=== PATIENT | male | born 1950 | race Caucasian/White ===

== ENCOUNTER → 2017-01-29 | Outpatient (CLI) | payer MEDICARE, BC ==
[~2017-01-29] MED LIST: REGADENOSON 0.4 MG/5 ML DISP.SYRIN. IV ONE
--- NOTE | 2017-01-29 15:01 | PCVCIMAG ---
EXAM: BILATERAL CAROTID DUPLEX INDICATION: Carotid Occlusive Disease. FINDINGS: Doppler Measurements (centimeters per second): RIGHT: Peak CCA-97, Peak ECA-124, Diastolic ICA-25, Peak ICA-88, ICA/CCA Ratio-0.9. LEFT: Peak CCA-96, Peak ECA-79, Diastolic ICA-41, Peak ICA-98, ICA/CCA Ratio-1.0. RIGHT CAROTID: The carotid bulb has mild plaque. The proximal internal carotid artery shows <40% stenosis. The common carotid artery shows no significant stenosis. The external carotid artery shows no significant stenosis. LEFT CAROTID: The carotid bulb has mild plaque. The proximal internal carotid artery shows <40% stenosis. The common carotid artery shows no significant stenosis. The external carotid artery shows no significant stenosis. Antegrade flow in both vertebral arteries. IMPRESSION: <40% stenosis of the right internal carotid artery with mild plaque. <40% stenosis of the left internal carotid artery with mild plaque. LOC:[place] [id number]
== END | disposition home or self-care (01) ==
LOC: PCVCIMAG 14:12
PROVIDERS: ATTEND Internal Medicine Cardiovascular Disease
DX: I65.23 Occlusion and stenosis of bilateral carotid arteries (principal)
CPT/HCPCS: 93880; J2785

== ENCOUNTER → 2017-08-24 | Outpatient (CLI) | payer MEDICARE, BC | END | disposition home or self-care (01) | LOC: PCVCCLINIC 14:00 | DX: I25.10 Atherosclerotic heart disease of native coronary artery without angina pectoris (principal); I10 Essential (primary) hypertension; I65.29 Occlusion and stenosis of unspecified carotid artery; E78.00 Pure hypercholesterolemia, unspecified; E11.9 Type 2 diabetes mellitus without complications; Z88.8 Allergy status to other drugs, medicaments and biological substances; Z87.891 Personal history of nicotine dependence; Z95.1 Presence of aortocoronary bypass graft; Z79.82 Long term (current) use of aspirin; Z79.899 Other long term (current) drug therapy | CPT/HCPCS: 80061; 93005; G0463 ==

== ENCOUNTER → 2018-05-16 | Outpatient (CLI) | payer MEDICARE, BC | END | disposition home or self-care (01) | LOC: PCVCCLINIC 11:47 | PROVIDERS: ATTEND Internal Medicine Cardiovascular Disease | DX: I25.10 Atherosclerotic heart disease of native coronary artery without angina pectoris (principal); I10 Essential (primary) hypertension; R94.31 Abnormal electrocardiogram [ECG] [EKG]; I65.29 Occlusion and stenosis of unspecified carotid artery; E78.00 Pure hypercholesterolemia, unspecified; E11.9 Type 2 diabetes mellitus without complications; Z95.1 Presence of aortocoronary bypass graft; Z88.0 Allergy status to penicillin; Z88.8 Allergy status to other drugs, medicaments and biological substances; Z87.891 Personal history of nicotine dependence; Z79.82 Long term (current) use of aspirin; Z79.899 Other long term (current) drug therapy | CPT/HCPCS: 36415; 80061; 93005; G0463 ==

== ENCOUNTER → 2019-02-26 | Outpatient (CLI) | payer MEDICARE, BC ==
--- NOTE | 2019-02-26 16:39 | PCVCIMAG ---
APPROVED REPORT Study performed: 02/26/2019 08:13:41 EXAM: Comprehensive 2D, Doppler, and color-flow Echocardiogram Patient Location: Echo lab Status: routine BSA: 2.14 HR: 61 bpmBP: 130/70 mmHg Rhythm: NSR Other Information Study Quality: Technically Difficult Risk Factors: Cardiac Risk Factors: HTN, Hyperlipidemia, DM Indications CAD CABG 2D Dimensions IVSd: 10.45 (7-11mm)LVOT Diam: 19.92 (18-24mm) LVDd: 46.50 mm LVPWs: 20.73 mm PWd: 12.31 (7-11mm)Ascending Ao: 37.20 (22-36mm) LVDs: 25.35 (25-40mm) Left Atrium: 41.48 (27-40mm) Aortic Root: 33.16 mm LV Single Plane 4CH: 47.93 % Volumes Left Atrial Volume (Systole) Single Plane 4CH: 28.47 mLSingle Plane 2CH: 32.16 mL LA ESV Index: 15.00 mL/m2 Aortic Valve AoV Peak Jim.: 2.71 m/s AO Peak Gr.: 29.46 mmHgLVOT Max P.57 mmHg AO Mean Gr.: 17.09 mmHgLVOT Mean P.67 mmHg AO V2 Mean: 1.98 m/sLVOT Max V: 1.18 m/s AO V2 VTI: 59.62 cmLVOT Mean V: 0.75 m/s BRITTANY (VTI): 1.21 [id number] V1 VTI: 23.15 cm BRITTANY Vmax: 1.35 cm2 SV (LVOT): 72.10 mL Mitral Valve E/A Ratio: 0.9 MV Decel. Time: 231.64 ms MV E Max Jim.: 0.85 m/s MV A Jim.: 0.95 m/s IVRT: 103.81 ms TDI E/Lateral E': 8.50E/Medial E': 10.63 Medial E' Jim.: 0.08 m/s Lateral E' Jim.: 0.10 m/s Pulmonary Valve PV Peak Gr.: 1.86 mmHg Pulmonary Vein P Vein S: 0.57 m/sP Vein A: 0.33 m/s P Vein D: 0.47 m/sP Vein A Dur.: 100.3 msec P Vein S/D Ratio: 1.21 Tricuspid Valve TR Peak Jim.: 2.10 m/s TR Peak Gr.: 17.68 mmHg Left Ventricle The left ventricle is normal size. There is normal LV segmental wall motion. There is normal left ventricular wall thickness. Left ventricular systolic function is normal. The left ventricular ejection fraction is within the normal range. LVEF is 50-55%. Right Ventricle The right ventricle is normal size. The right ventricular systolic function is normal. Atria The left atrium size is normal. The right atrium size is normal. Aortic Valve Aortic valve leaflets are moderately thickened. Trace aortic regurgitation. Peak aortic gradient is 30mmHg. Mean gradient is 17mmHg. Calculated valve area is 1.4cm2. Mitral Valve Mild mitral annular calcification. There is no mitral valve regurgitation noted. No evidence of mitral valve stenosis. Tricuspid Valve The tricuspid valve is normal in structure. Trace tricuspid regurgitation. Pulmonary artery pressure is 25mmHg. Pulmonic Valve The pulmonary valve is normal in structure. There is no pulmonic valvular regurgitation. Great Vessels The aortic root is normal in size. IVC is normal in size and collapses >50% with inspiration. Pericardium There is no pericardial effusion. <Conclusion> The left ventricle is normal size. LVEF is 50-55%. The right ventricle is normal size. The left atrium size is normal. Aortic valve leaflets are moderately thickened. Trace aortic regurgitation. Peak aortic gradient is 30mmHg. Mean gradient is 17mmHg. Calculated valve area is 1.4cm2. Mild mitral annular calcification. There is no mitral valve regurgitation noted. Trace tricuspid regurgitation. Pulmonary artery pressure is 25mmHg. The aortic root is normal in size. There is no pericardial effusion.
== END | disposition home or self-care (01) ==
LOC: PCVCIMAG 16:08
PROVIDERS: ATTEND Internal Medicine Cardiovascular Disease
DX: I34.8 Other nonrheumatic mitral valve disorders (principal); I25.10 Atherosclerotic heart disease of native coronary artery without angina pectoris; R06.02 Shortness of breath; E11.9 Type 2 diabetes mellitus without complications; E78.00 Pure hypercholesterolemia, unspecified; I10 Essential (primary) hypertension; Z87.891 Personal history of nicotine dependence; Z95.1 Presence of aortocoronary bypass graft; Z88.8 Allergy status to other drugs, medicaments and biological substances; Z72.89 Other problems related to lifestyle
CPT/HCPCS: 93306